=== PATIENT | male | born 1965 | race Caucasian/White ===

== ENCOUNTER → 2018-03-31 09:42 | Outpatient (CLI) | payer OTHER, MEDICAID, SELFPAY ==
--- NOTE | 2018-03-31 | DI.ECHO.S_ITS ---
[place] +---------+ [facility] +---------+ : : [address] : [address] : : : : [id number] : : : : Phone: [phone]---------+ Echocardiogram Report + + :Name: RAMESH NGUYỄN Study Date: 03/31/2018 Height: 72 in : :[facility] Exam Location: [place] Weight: 221 lb : : Gender: Male BSA: 2.2 m2 : :: 1965 Age: 52 yrs BP: 165/108 mmHg: :Reason For Study: ACUTE PULMONARY EDEMA : : Performed By: Singh Erazo : :Referring: LENNY MINA : + + Interpretation Summary The left ventricle is severely dilated. Left ventricular wall thickness is mildly increased. The ejection fraction is estimated to be 20-25%. There is no thrombus. There is severe global hypokinesis of the left ventricle. There is apical akinesis. The left atrium is severely dilated. There is moderate to severe mitral regurgitation. The right ventricular systolic pressure is estimated at 79 mmHg assuming a right atrial pressure of 3 mm Hg. Procedure: A two-dimensional transthoracic echocardiogram with color flow and Doppler was performed. The study quality was technically good. There is no prior echocardiogram noted for this patient. The patient was in normal sinus rhythm during the exam. The patient was tachycardic with a heart rate of 95- 112 beats per minute. Left Ventricle: Left ventricular wall thickness is mildly increased. The left ventricle is severely dilated. There is no thrombus. The ejection fraction is estimated to be 20-25%. There is severe global hypokinesis of the left ventricle. There is apical akinesis. Right Ventricle: The right ventricle is normal size. Right ventricular systolic function is mildly reduced. Atria: The left atrium is severely dilated. Right atrial size is normal. The interatrial septum is intact with no evidence for an atrial septal defect. Mitral Valve: The mitral valve is normal in structure and function. There is mild mitral annular calcification. There is moderate to severe mitral regurgitation. Aortic Valve: The aortic valve opens well. No aortic regurgitation is present. Tricuspid Valve: The tricuspid valve is normal in structure and function. There is mild tricuspid regurgitation. The right ventricular systolic pressure is estimated at 79 mmHg assuming a right atrial pressure of 3 mm Hg. Pulmonic Valve: The pulmonic valve is normal in structure and function. There is trace pulmonic regurgitation. Great Vessels: The aortic root is normal size. The ascending aorta is mildly enlarged. The pulmonary artery is normal size. The IVC is dilated (diameter is greater than 2.1 cm) yet it collapses greater than 50% with a sniff. This suggests a right atrial pressure of 8 mm Hg. Pericardium/ Pleura There is no pericardial effusion. There is no pleural effusion. MMode/2D Measurements & Calculations LVIDd: 7.9 cm Ao root diam: 3.6 cm LVIDs: 7.0 cm Aortic Jxn: 2.9 cm FS: 11.2 % asc Aorta Diam: 3.7 cm EPSS: 2.4 cm Ao Arch Diam (Prox Trans): 3.3 cm IVSd: 1.0 cm LVPWd: 1.1 cm LV garduno. diameter/BSA (cm/m^2): 3.6 LV sys. diameter/BSA (cm/m^2): 3.2 LA dimension: 4.3 cm RA long axis: 5.0 cm LA A2 area: 36.0 cm2 RA area: 18.5 cm2 LA A4 area: 39.4 cm2 RA vol: 58.1 ml LA length (vol): 7.6 cm RA : 26.1 ml/m2 LA vol: 158.1 ml IVC diam: 2.2 cm LA vol index: 71.1 ml/m2 Doppler Measurements & Calculations Ao V2 max: 111.4 cm/sec MV E max ellis: 107.9 cm/sec Ao V2 mean: 77.9 cm/sec MV A max ellis: 0.53 cm/sec Ao max P.0 mmHg MV E/A: 205.2 Ao mean P.7 mmHg Med Peak E' Ellis: 6.3 cm/sec Ao V2 VTI: 17.3 cm E/E' med: 17.1 Lat Peak E' Ellis: 6.2 cm/sec E/E' lat: 17.4 E/e' average: 17.3 MV dec time: 0.17 sec MR ERO: 0.13 cm2 TR max ellis: 419.7 cm/sec MR flow rate: 73.1 cm3/sec TR max P.5 mmHg MR PISA radius: 0.56 cm PA V2 max: 70.7 cm/sec PA V2 mean: 47.4 cm/sec PA mean P.99 mmHg PA pr(Accel): 64.0 mmHg PA Accel Time: 0.04 sec Reading Physician:12:57 PM
== END ==
PROVIDERS: Visit Provider Student in an Organized Health Care Education/Training Program
DX: J81.1 Chronic pulmonary edema (principal); I34.0 Nonrheumatic mitral (valve) insufficiency
CPT/HCPCS: 93306